=== PATIENT | female | born 1965 ===

== ENCOUNTER 2017-12-28 07:49 | Day surgery (SDC) | payer OTHER ==
[2016-10-22 09:32] VITALS: BMI 32.1
[2017-12-28] MEDS ORDERED: Lactated Ringer's 1,000 ML IV ONE (08:05)
[2017-12-28 09:12] VITALS: TEMP 97.6
[2017-12-28] MEDS ORDERED: Lidocaine PF 2% (5 ml) Inj (For Cardiac Arrhy) IV ONE (09:46)
[2017-12-28] MEDS ORDERED: Propofol 10 mg/ml Inj (20 ML) ONE (09:46)
[2017-12-28 10:21] VITALS: O2SAT 100
[2017-12-28 10:57] VITALS: BP 118/56; PULSE 70; RESP 18
== END 2017-12-28 11:10 | disposition home or self-care (01) ==
LOC: H.ENDO 07:49
PROVIDERS: ATTEND Internal Medicine Gastroenterology
DX: Z12.11 Encounter for screening for malignant neoplasm of colon (principal); K21.9 Gastro-esophageal reflux disease without esophagitis; K30 Functional dyspepsia; K31.9 Disease of stomach and duodenum, unspecified; K20.9 Esophagitis, unspecified; K29.50 Unspecified chronic gastritis without bleeding; K25.9 Gastric ulcer, unspecified as acute or chronic, without hemorrhage or perforation
CPT/HCPCS: 43239; 45378; 88305; J2704; J7120

== ENCOUNTER 2018-10-16 11:44 | Emergency (ER) | payer OTHER ==
[2018-10-16 11:44] VITALS: BMI 32.1
[2018-10-16 11:52] VITALS: BP 149/92; PULSE 76; RESP 20; TEMP 98.1; O2SAT 100
--- NOTE | 2018-10-16 12:31 | ED PDOC ---
HPI: Back Time Seen by Provider: 10/16/18 12:18 Chief Complaint (Nursing): Back Pain Chief Complaint (Provider): Back Pain History Per: Patient History/Exam Limitations: no limitations Onset/Duration Of Symptoms: Days (x1) Current Symptoms Are (Timing): Still Present Additional Complaint(s): 53 year old female presents to the ED via EMS for evaluation of lower back pain which worsens with movement and standing upright. She states that yesterday she was on the floor brushing her dog and upon getting up, had sudden onset low back pain, unrelieved by Motrin and Flexeril last taken last night. No meds were taken today. Patient notes one year ago having similar symptoms and diagnosed with muscle spasms, but otherwise denies any recent falls, trauma, or hx of back surgery. Additionally denies fever, chills, cough/SOB, chest pain, abdominal pain, urinary symptoms, incontinence, saddle anesthesia, numbness, weakness, nausea, vomiting, and diarrhea. LNMP: x3 years ago PMD: Shaik Bhat Past Medical History Reviewed: Historical Data, Nursing Documentation, Vital Signs Vital Signs: Last Vital Signs Temp 98.1 F 10/16/18 11:50 Pulse 76 10/16/18 11:50 Resp 20 10/16/18 11:50 BP 149/92 H 10/16/18 11:50 Pulse Ox 100 10/16/18 11:50 - Medical History PMH: Anxiety, HTN, Hypercholesterolemia, Hyperlipidemia, Hypothyroidism - Surgical History Surgical History: Cholecystectomy, Other surgeries: tubal ligation - Family History Family History: States: Unknown Family Hx - Social History Current smoker - smoking cessation education provided: No Alcohol: None Drugs: Denies - Home Medications Home Medications: Ambulatory Orders Medication Instructions Recorded RX: Atorvastatin Calcium [Lipitor] 10 mg PO DAILY 12/27/14 Levothyroxine [Synthroid] 125 mcg PO DAILY 12/28/17 Acetaminophen [Acetaminophen 8 650 mg PO Q8 PRN #21 tablet.er 10/16/18 Hour] Meloxicam [Mobic] 15 mg PO DAILY PRN #10 tab 10/16/18 Methocarbamol [Robaxin-750] 750 mg PO Q8 PRN #12 tablet 10/16/18 - Allergies Allergies/Adverse Reactions: Allergies Allergy/AdvReac Type Severity Reaction Status Date / Time No Known Allergies Allergy Verified 11/02/16 12:29 Review of Systems ROS Statement: Except As Marked, All Systems Reviewed And Found Negative Constitutional: Negative for: Fever, Chills Gastrointestinal: Negative for: Nausea, Vomiting, Abdominal Pain, Diarrhea Genitourinary Female: Negative for: Dysuria, Frequency, Incontinence Musculoskeletal: Positive for: Back Pain (lower) Neurological: Negative for: Weakness, Numbness, Other (saddle anesthesia) Physical Exam - Reviewed Nursing Documentation Reviewed: Yes Vital Signs Reviewed: Yes - Physical Exam Comments: GENERAL APPEARANCE: Patient is awake, alert, oriented x 3, uncomfortable appearing. SKIN: Warm, dry; (-) cyanosis. ENMT: Mucous membranes moist. Airway patent, (-) stridor. NECK: Supple, FROM CHEST AND RESPIRATORY: (-) rales, (-) rhonchi, (-) wheezes; breath sounds equal bilaterally. Respirations even and nonlabored. HEART AND CARDIOVASCULAR: (-) irregularity ABDOMEN AND GI: Soft; (-) tenderness (-) guarding (-) distention BACK: (+) bilateral paralumbar tenderness, right greater than left, (+) right sided paralumbar muscle spasm, (-) direct bony tenderness, (-) deformity. EXTREMITIES: (-) deformity. Distal pulses good bilaterally. NEURO AND PSYCH: Mental status as above. Intact sensation bilaterally; normal strength in extension of the knees, plantar and dorsiflexion of the toes. Speech: clear. (-) facial asymmetry (-) aphasia - ECG O2 Sat by Pulse Oximetry: 100 (RA) Pulse Ox Interpretation: Normal Medical Decision Making Medical Decision Making: Initial Impression: acute back pain, probable muscle spasm Time: 1225 Initial Plan: --Toradol 30mg IM --Valium 5mg PO (not driving home) --Re-evaluation 1355 Patient reports persistent symptoms. Reports no improvement with medications given in ED. Tramadol 100mg PO ordered. 1515 Patient sleeping comfortably on re-evaluation. No distress noted. 1530 Patient now ambulatory in the ED with a steady gait. Patient reports significant improvement of symptoms. On exam, patient remains AAOx3, in no acute distress. Lungs clear to auscultation, cardiac RRR, abdomen soft, non-tender, repeat neuro exam shows no focal findings. Vitals stable. Lab/Diagnostic results d/w the patient in great detail. Diagnosis of acute back pain, muscle spasm d/w the patient. Based on history, exam and diagnostic results, plan will be for outpatient follow up with PMD/ortho. Patient instructed to follow-up with pmd / referral provided / the clinic in 1- 2 days without fail. Advised to take medication as prescribed. Return to the emergency room at any time for any new or worsening symptoms. Patient states she fully agrees with and understands discharge instructions. States that she agrees with the plan and disposition. Verbalized and repeated discharge instructions and plan. I have given the patient opportunity to ask any additional questions. Scribe Attestation: Documented by Fely Zuniga, acting as a scribe for Chica Krause PA-C. Provider Scribe Attestation: All medical record entries made by the Scribe were at my direction and personally dictated by me. I have reviewed the chart and agree that the record accurately reflects my personal performance of the history, physical exam, medical decision making, and the department course for this patient. I have also personally directed, reviewed, and agree with the discharge instructions and disposition. Disposition - Clinical Impression Clinical Impression: Low back pain, Muscle spasm of back - Patient ED Disposition Is Patient to be Admitted: No Counseled Patient/Family Regarding: Studies Performed, Diagnosis, Need For Followup, Rx Given - Disposition Referrals: Shaik Bhat MD [Primary Care Provider] - Tez Cline MD [Medical Doctor] - Disposition: Routine/Home Disposition Time: 15:30 Condition: STABLE Additional Instructions: The emergency medical care you received today was directed at your acute symptoms. If you were prescribed any medication, please fill it and take as directed. It may take several days for your symptoms to resolve. Return to the Emergency Department if your symptoms worsen, do not improve, or if you have any other problems. Please contact your doctor in 2 days for re-evaluation and follow up / or call one of the physicians/clinics you have been referred to that are listed on the Patient Visit Information form that is included in your discharge packet. Bring any paperwork you were given at discharge with you along with any medications you are taking to your follow up visit. Our treatment cannot replace ongoing medical care by a primary care provider (PCP) outside of the emergency department. Prescriptions: Acetaminophen [Acetaminophen 8 Hour] 650 mg PO Q8 PRN #21 tablet.er PRN Reason: Pain, Moderate (4-7) Meloxicam [Mobic] 15 mg PO DAILY PRN #10 tab PRN Reason: Pain, Moderate (4-7) Methocarbamol [Robaxin-750] 750 mg PO Q8 PRN #12 tablet PRN Reason: Muscle Spasm Instructions: Low Back Pain in Adults, Muscle Spasms (DC), Muscle and Bone Pain (DC) Forms: [facility] (Greek) Print Language: NOR[place] KOREAN - POA Present On Arrival: None
== END 2018-10-16 17:01 | disposition home or self-care (01) ==
LOC: SUPCPDRO 11:44 → H.ER 11:44
DX: M54.9 Dorsalgia, unspecified (principal); M62.830 Muscle spasm of back; E03.9 Hypothyroidism, unspecified; E78.00 Pure hypercholesterolemia, unspecified; F41.9 Anxiety disorder, unspecified; I10 Essential (primary) hypertension
CPT/HCPCS: 96372; 99283; J1885

== ENCOUNTER 2019-01-09 21:55 | Emergency (ER) | payer OTHER ==
[2019-01-09 21:56] VITALS: BMI 32.1
[2019-01-09 23:34] LABS: BASO # 0.1 K/uL (0.0-0.2); BASO % 1.2 % (0.0-2.0); EOS # 0.3 K/uL (0.0-0.7); EOS % 4.3 % (0.0-4.0); HEMOGLOBIN 12.6 g/dL (12.0-16.0); LYMPH # 2.1 K/uL (1.0-4.3); MEAN CELL VOLUME 84.9 fl (81.0-99.0); MEAN CORPUSCULAR HGB CONC 32.9 g/dL (33.0-37.0); MONO # 0.4 K/uL (0.0-0.8); MONO % 6.5 % (0.0-10.0); NEUT # 3.4 K/uL (1.8-7.0); NRBC % 0.1 % (0.0-0.0); RBC 4.5 Mil/uL (3.80-5.20); RED CELL DISTRIBUTION WIDTH 13.4 % (11.5-14.5); WHITE BLOOD COUNT 6.2 K/uL (4.8-10.8)
[2019-01-09 23:40] LABS: BLOOD UREA NITROGEN 13 mg/dl (7-17); CALCIUM 10.3 mg/dL (8.4-10.2); GFR NON-AFRICAN AMERICAN > 60
[2019-01-09 23:48] LABS: B-TYPE NATRIURETIC PEPTIDE 18.7 pg/ml (0-900)
--- NOTE | 2019-01-10 00:17 | ED PDOC ---
HPI: Chest Pain Time Seen by Provider: 01/09/19 22:37 Chief Complaint (Nursing): Palpitations Additional Complaint(s): 53 y/o female with history of HTN, hypothyroidism, and anxiety presents with palpitations and high blood pressure. Patient reports her PMD put her on Losartan to control her blood pressure. Patient states she took her first dose today and then about an hour later she started feeling "funny." Patient states she checked her blood pressure and it was 180/107 and she became very nervous causing her blood pressure to go even higher. She states she she has had some shortness of breath over the past few weeks. Yousif any chest pain currently but reports she feels pressure all over her chest, both left and right sided. PMD: Shaik Bhat Past Medical History Reviewed: Historical Data, Nursing Documentation, Vital Signs Vital Signs: Last Vital Signs Temp 98.3 F 01/09/19 22:24 Pulse 70 01/09/19 23:26 Resp 19 01/09/19 23:26 BP 145/77 01/09/19 23:26 Pulse Ox 96 01/09/19 23:26 - Medical History PMH: Anxiety, HTN, Hypercholesterolemia, Hyperlipidemia, Hypothyroidism Denies: HIV, Chronic Kidney Disease - Surgical History Surgical History: Cholecystectomy, - Family History Family History: States: Unknown Family Hx - Home Medications Home Medications: Ambulatory Orders Medication Instructions Recorded Atorvastatin Calcium [Lipitor] 10 mg PO DAILY 12/27/14 Levothyroxine [Synthroid] 125 mcg PO DAILY 12/28/17 Acetaminophen [Acetaminophen 8 650 mg PO Q8 PRN #21 tablet.er 10/16/18 Hour] Meloxicam [Mobic] 15 mg PO DAILY PRN #10 tab 10/16/18 Methocarbamol [Robaxin-750] 750 mg PO Q8 PRN #12 tablet 10/16/18 - Allergies Allergies/Adverse Reactions: Allergies Allergy/AdvReac Type Severity Reaction Status Date / Time No Known Allergies Allergy Verified 11/02/16 12:29 Review of Systems ROS Statement: Except As Marked, All Systems Reviewed And Found Negative Cardiovascular: Positive for: Chest Pain, Palpitations Respiratory: Positive for: Shortness of Breath Physical Exam - Reviewed Nursing Documentation Reviewed: Yes Vital Signs Reviewed: Yes - Physical Exam Appears: Positive for: Well, Non-toxic, No Acute Distress (anxious appearing) Head Exam: Positive for: ATRAUMATIC, NORMAL INSPECTION, NORMOCEPHALIC Skin: Positive for: Normal Color, Warm, DRY Eye Exam: Positive for: EOMI, Normal appearance, PERRL ENT: Positive for: Normal ENT Inspection Neck: Positive for: Normal, Painless ROM Cardiovascular/Chest: Positive for: Regular Rate, Rhythm Respiratory: Positive for: CNT, Normal Breath Sounds Gastrointestinal/Abdominal: Positive for: Normal Exam, Soft Back: Positive for: Normal Inspection Extremity: Positive for: Normal ROM Neurological/Psych: Positive for: Awake, Alert, Normal Tone, Mood/Affect (anxio us) - Laboratory Results Result Diagrams: 01/09/19 23:10 01/09/19 23:10 Lab Results: Troponin I < 0.0120 ng/mL (0.00-0.120) 01/09/19 23:10 NT-Pro-B Natriuret Pep 18.7 pg/ml (0-900) 01/09/19 23:10 - ECG O2 Sat by Pulse Oximetry: 96 (RA) Pulse Ox Interpretation: Normal Medical Decision Making Medical Decision Making: Time: 22:47 A/P: Hypertension and anxiety. Will check labs, give anxiety medication and reevaluate. * Labs * Xanax * CXR 2330 Patient is much improved, no longer having pain, vitals improved. Advised patient to stop taking losartan and to call her PMD in the AM. Well appearing upon discharge. Scribe Attestation: Documented by Pablo Rodriguez, acting as a scribe Tyree Isaac MD. Provider Scribe Attestation: All medical record entries made by the Scribe were at my direction and personally dictated by me. I have reviewed the chart and agree that the record accurately reflects my personal performance of the history, physical exam, medical decision making, and the department course for this patient. I have also personally directed, reviewed, and agree with the discharge instructions and disposition. Disposition - Clinical Impression Clinical Impression: Palpitations - Patient ED Disposition Is Patient to be Admitted: No - Disposition Referrals: Shaik Bhat MD [Family Provider] - Disposition: Routine/Home Disposition Time: 00:00 Condition: IMPROVED Instructions: Palpitations Forms: [facility] (Brazilian)
[2019-01-10 00:47] VITALS: RESP 18
[2019-01-10 02:24] VITALS: BP 114/61; PULSE 84; TEMP 98.2
[2019-01-10 04:47] VITALS: O2SAT 96
--- NOTE | 2019-01-10 08:27 | CARD ---
APPROVED REPORT Date of service: 01/09/2019 EKG Measurement Heart [id number] [id number] <Conclusion> Normal sinus rhythm Nonspecific ST abnormality Prolonged QT Abnormal ECG
--- NOTE | 2019-01-10 10:19 | RAD ---
HISTORY: palpitations COMPARISON: Chest x-ray performed 12/27/14 TECHNIQUE: Chest PA and lateral FINDINGS: LUNGS: No focal consolidation. Please note that chest x-ray has limited sensitivity for the detection of pulmonary masses. PLEURA: No significant pleural effusion identified. No definite pneumothorax . CARDIOVASCULAR: Heart size appears within normal limits. No atherosclerotic calcification present. OSSEOUS STRUCTURES: Degenerative changes. VISUALIZED UPPER ABDOMEN: Cholecystectomy clips. OTHER FINDINGS: None. IMPRESSION: No focal consolidation.
== END 2019-01-10 02:33 | disposition home or self-care (01) ==
LOC: H.ER 21:55
DX: R00.2 Palpitations (principal); I10 Essential (primary) hypertension; E03.9 Hypothyroidism, unspecified; E78.00 Pure hypercholesterolemia, unspecified; F41.9 Anxiety disorder, unspecified